=== PATIENT | female | born 1985 | race Caucasian/White ===

== ENCOUNTER 2017-02-20 22:24 | Emergency (ER) | payer OTHER ==
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
[2017-02-20] MEDS ORDERED: HYDROCODONE/APAP 5/325 TAB ONE (23:22)
[2017-02-21 00:11] VITALS: BP 121/73; PULSE 88; RESP 16; TEMP 97; O2SAT 94
== END 2017-02-21 00:09 | disposition home or self-care (01) ==
DX: S19.9XXA Unspecified injury of neck, initial encounter (principal); V49.49XA Driver injured in collision with other motor vehicles in traffic accident, initial encounter; Y92.410 Unspecified street and highway as the place of occurrence of the external cause; Y93.89 Activity, other specified